=== PATIENT | female | born 1980 | race Caucasian/White ===

== ENCOUNTER 2021-08-31 01:17 | Day surgery (SDC) | payer OTHER, SELFPAY ==
[2021-08-30 12:41] VITALS: BMI 22.1
--- NOTE | 2021-08-30 12:52 | PC.NURSE ---
Report to the Outpatient Waiting Room, entrance under the green pavilion located off [facility], at time 1145 on date 08/31/21. OR Time: 1400. - You will be asked a series of questions to screen for COVID 19 for your protection. - A mask is required within the hospital. - No visitors are allowed at this time. Preoperative COVID Testing Requirements: No COVID Test needed if: (proof is required; if not received patient will have Rapid Test prior to entry) - Patient has received COVID Vaccine at least 14 days prior to procedure date or - Patient has positive COVID test result within last 90 days of surgery date. COVID Test needed if above criteria is not met If not COVID vaccinated a COVID test must be conducted within 72 hours of surgery and patient is asked to isolate self from time of testing until procedure. You will go to the [facility] for your COVID testing. The [facility] is located at the corner of [address] [facility]. RAPID COVID TEST 08/31 AT 1145 You will only be called if COVID results are positive and your surgeon may reschedule your elective surgery date. Patients may have clear liquids (water, carbonated beverages, clear teas, apple juice) until 3 hours prior to surgery with a maximum of 20 ounces. - No food from midnight until time of surgery Take the following medications with a SIP of water the morning of surgery: NONE Medications to discontinue per physician: N/A Date to take last dose: N/A Please no make-up, nail tajik, hairspray, perfume, deodorant, or body powder the day of surgery. No jewelry (including any body piercings) or valuables the day of surgery, leave them at home. Please take a shower or bath the night before, or the morning of, surgery with an antibacterial soap. Wear comfortable, loose fitting clothing. Children are encouraged to wear pajamas. - Jewelry must be removed prior to entering the operating room. Rings and piercings that are not removed may be cut off. - The hospital will not accept responsibility for valuables. - Please leave all valuables, including medications, at home the day of surgery. If you are going home after surgery, a licensed bobcat driver/labor must drive you home. - NO public transportation without another adult. - We recommend that an adult stay with you for 24 hours following discharge. - We also recommend that you do not drive, make important decision, drink alcoholic beverages, or take any drugs that were not prescribed by your health care provider for at least 24 hours after your discharge time. For Pediatric surgeries, we recommend two adults accompany the child home (only one inside the building at this time). Follow any additional instructions given to you from your surgeon. Telephone instructions given to DELIA GARCIA and asked if any additional questions and then verbalized understanding. Patient advised to call surgeon office or pre surgery nurse liaison [phone] if any additional questions.
--- NOTE | 2021-08-31 07:12 | P.HP_ITS ---
H&P: HPI History of Present Illness Date/Time: 1 41-year-old female who admitted for suction D&C secondary to susp ected molar . Patient had elevated quantitative HCG with abnormal tissue seen in the uterus. Risks and benefits were reviewed in great detail 07:12 Chief Complaint: Suspected molar Review of Systems Review of Systems: All systems reviewed & are unremarkable except as noted in HPI and below PMFSH Social History Social History Years smoked: 4 Smoking status: Former smoker Tobacco type: cigarettes Smoking end date: 09/03/18 Alcohol intake: never Substance use: never Substance use type: does not use Living arrangements: with family Spiritual care concerns: No Meds Home Medications and Allergies Home Medications Medication Instructions Recorded Confirmed Type No Home Medications 08/30/21 08/30/21 History Allergies Allergy/AdvReac Type Severity Reaction Status Date / Time No Known Allergies Allergy Unknown Unverified 08/30/21 12:41 Exam Const: General: no acute distress Eyes: General: appearance normal, both eyes and all related structures Neck: Neck: supple and no JVD Thyroid: thyroid normal Resp: Effort & Inspection: normal respiratory effort Auscultation: clear to auscultation bilaterally Cardio: Rate: regular rate Rhythm: regular rhythm GI: Inspection: non-distended GI Palp: Yes Soft to palpation, No Tenderness to palpation present (GI) and No Guarding due to palpation present (GI) Auscultation: normal bowel sounds : External Female Exam: normal external appearance Speculum Exam - Va kavin: normal appearance of the vagina Speculum Exam - Cervix: normal appearance of the cervix Bimanual exam- vagina & uterus: enlarged Bimanual Exam- Adnexa, other: normal adnexae Skin: General skin exam: no rashes or lesions noted Extrem: General: normal to inspection and no edema Psych: Mental Status: mental status grossly normal Affect: normal affect Assessment and Plan Additional Plan Impression: Abnormal in 1st trimester Plan: Suction dilatation curettage
--- NOTE | 2021-08-31 07:14 | WPDHPUPDATE1 ---
History and Physical Update Update Date/Time: 08/31/21 07:14 History and Physical has been reviewed, including an updated exam of the patient. There are NO changes in the patient's condition. Risks, benefits, and alternatives have been discussed and questions answered. Patient agrees to proceed with procedure.
[2021-08-31 12:57] VITALS: BP 116/76; PULSE 87; RESP 16; TEMP 36.8; O2SAT 100
[2021-08-31] MEDS: ACETAMINOPHEN 500 MG TABLET 1000 MG PO (12:59)
[2021-08-31 13:18] LABS: Hematocrit 38.2 % (37.0-47.0); Hemoglobin 12.9 g/dL (12.0-15.0)
--- NOTE | 2021-08-31 13:26 | WPDANESEPPF ---
Anes - Initial Pre Proc Eval Procedure: Operation Date: 08/31/21 14:00 Proposed Procedures p Dilation and Curettage - Alexx Aguirre MD Date/Time: 08/31/21 13:26 Surgeon: Alexx Aguirre MD Pre Op Diagnosis: Molar Patient Data Age: 41 Gender: F Height: 1.75 m Weight: 79.9 kg Last Vital Signs Temp 36.8 C 08/31/21 12:57 Pulse 87 08/31/21 12:57 Resp 16 08/31/21 12:57 BP 116/76 08/31/21 12:57 Pulse Ox 100 08/31/21 12:57 Allergies Allergy/AdvReac Type Severity Reaction Status Date / Time No Known Allergies Allergy Unknown Unverified 08/31/21 13:00 Home Medications Medication Instructions Recorded Confirmed Type hydrocodone-acetaminophen 1 tablet PO Q4H PRN #20 tablet 08/31/21 Rx Laboratory Tests 08/31/21 13:03 Hgb 12.9 g/dL g/dL (12.0-15.0) Hct 38.2 % % (37.0-47.0) Patient hx anesthesia problems: none Family hx anesthesia problems: none Results Review: All pre-operative results and documents have been reviewed as part of the pre-operative evaluation. FORMERLY [facility], [facility] Past Medical History Medical History (Updated 08/31/21 @ 13:24 by David Mora DO) Renal stones Social History Social History Years smoked: 4 Smoking status: Former smoker Tobacco type: cigarettes Smoking end date: 09/03/18 Alcohol intake: never Substance use: never Substance use type: does not use Spiritual care concerns: No Anes - Eval Final PreProcedure Day of Procedure 08/31/21 13:26 Patient weight: overweight Heart: regular rate and rhythm Lungs: clear to auscultation and normal air movement Airway: Mallampati scale class II Neurological: alert and oriented Last oral intake: >/= 8 hours ASA classification: II Emergent: no Anesthetic plan: proceed Anesthesia type and monitoring: general GIVS and standard monitoring Results Review: All pre-operative results and documents have been reviewed as part of the pre-operative evaluation. Informed Consent: The patient's anesthetic plan and its attendant risks and benefits were discussed with the patient/family/POA. Questions were solicited and answers provided to the satisfaction of the patient/family/POA.
[2021-08-31] MEDS: LACTATED RINGERS 1,000 ML 30 ML IV CONT (13:33)
[2021-08-31] MEDS: KETOROLAC 30 MG/ML VIAL (*BKC) IV PUSH (14:03)
--- NOTE | 2021-08-31 14:09 | W.PM.PROC2 ---
Procedure Note - Detailed Date of Procedure 08/31/21 Pre-op Diagnosis Molar Post-op Diagnosis same Procedure Performed Suction dilatation curettage Surgeon Alexx Aguirre MD Anesthesia MAC and local Indications This is a 41-year-old mal tip with an abnormal ultrasound findings that looked consistent with a molar in the 1st trimester Findings Products of conception Description of Procedure The patient was prepped draped in the normal sterile fashion placed in the dorsal lithotomy position. Under excellent IV sedation weighted is speculum placed posterior fornix vagina. Anterior lip of the cervix grasped with a single-tooth tenaculum and the uterus sounded to 10cm. Serial dilatation with fragmented dilators performed followed passes the 10. Suction curette. A moderate amount of a clumpy tissue was seen. When a good grating sound was heard the instruments removed. All sponge, needle, instrument counts were correct. There were no immediate complications Estimated Blood Loss 25 Drains No Packing No Pathology yes Complications No immediate complications Condition stable Disposition PACU
[2021-08-31 14:13] VITALS: BP 116/79; PULSE 83; RESP 16; O2SAT 100
[2021-08-31 14:40] VITALS: BP 111/77; PULSE 68; RESP 16; O2SAT 100
[2021-08-31] MEDS: oxyCODONE HCL (*CRX) 5 MG TAB IR PO (14:52)
[2021-08-31 14:58] VITALS: BP 114/71; PULSE 77; RESP 16
== END 2021-08-31 15:01 | disposition home or self-care (01) ==
PROVIDERS: Visit Provider Obstetrics & Gynecology
PROC: 0U5B8ZZ Destruction of Endometrium, Via Natural or Artificial Opening Endoscopic (ICD-10-PCS; CPT 58563; principal; 2021-08-31 14:00)
DX: O02.0 Blighted ovum and nonhydatidiform mole (principal); Z3A.00 Weeks of gestation of pregnancy not specified
CPT/HCPCS: 59820; 36415; 85014; 85018; 85461; 87426; 88305; A9270; C9803; J1885; J2250; J2704; J7120

== ENCOUNTER 2021-08-31 11:36 | Outpatient (CLI) | payer OTHER, SELFPAY ==
[2021-08-31 12:04] LABS: EDCOVIDSCREEN Negative (Negative)
== END 2021-08-31 11:37 | disposition home or self-care (01) ==
LOC: ANHSURGERY 11:41
PROVIDERS: Visit Provider Obstetrics & Gynecology
DX: Z01.812 Encounter for preprocedural laboratory examination (principal); Z20.822 Contact with and (suspected) exposure to COVID-19
CPT/HCPCS: 87426; C9803

== ENCOUNTER 2022-06-02 10:15 | Outpatient (RCR) | payer OTHER, SELFPAY ==
[2022-06-01 16:47] VITALS: BMI 30.7
== END 2022-08-23 11:28 | disposition home or self-care (01) ==
LOC: ANHDMC 10:15
PROVIDERS: Visit Provider Obstetrics & Gynecology
DX: O24.319 Unspecified pre-existing diabetes mellitus in pregnancy, unspecified trimester (principal); Z71.3 Dietary counseling and surveillance; Z71.89 Other specified counseling
CPT/HCPCS: 97802; G0108

== ENCOUNTER 2022-08-12 11:58 | Outpatient (CLI) | payer OTHER, SELFPAY ==
[2022-08-12 12:49] LABS: Hematocrit 36.4 % (37.0-47.0); Hemoglobin 12.2 g/dL (12.0-15.0); Mean Corpuscular HGB Conc 33.5 g/dl (32-36); Mean Corpuscular Hemoglobin 32.1 pg (26-34); Mean Corpuscular Volume 95.8 fl (80-100); Platelet Count Result 214 k/mm3 (150-375); Red Cell Distribution Width 13.8 % (11.5-14.5); White Blood Count 7.4 K/mm3 (4.5-10.0)
[2022-08-14 10:01] LABS: Rapid Plasma Reagin Non-Reactive (NonReactive)
== END 2022-08-12 11:59 | disposition home or self-care (01) ==
LOC: ANHLAB 11:59
PROVIDERS: Visit Provider Obstetrics & Gynecology
DX: Z01.818 Encounter for other preprocedural examination (principal)
CPT/HCPCS: 36415; 85027; 86592; 86850; 86900; 86901

== ENCOUNTER 2022-08-14 10:06 | Inpatient (IN) | payer OTHER, SELFPAY ==
[2022-08-14] VITALS (41 sets, daily range): BP systolic 84–127; BP diastolic 56–87; PULSE 49–111; RESP 11–19; TEMP 36.3–37; O2SAT 76–100; BMI 32.1
--- NOTE | 2022-08-14 08:03 | PM.IMHP ---
H&P: HPI History of Present Illness Date/Time: 08/14/22 08:03 Chief Complaint: Term with previous section Narrative: Is a 42-year-old female admitted for repeat section and tubal ligation. She had previous sections she has early visits confirming dates. She desires permanent irreversible sterilization L PMFSH Past Medical History Medical History Renal stones Family History Family History Other Patient denies significant medical history Social History Social History Years smoked: 4 Smoking status: Former smoker Tobacco type: cigarettes Smoking end date: 09/03/18 Alcohol intake: never Substance use: never Substance use type: does not use Spiritual care concerns: No Meds Home Medications and Allergies Home Medications Medication Instructions Recorded Confirmed Type prenat.vits,sreekanth,jew-kuvp-pvrgw 1 tablet PO HS 08/03/22 08/03/22 History Allergies Allergy/AdvReac Type Severity Reaction Status Date / Time No Known Allergies Allergy Unknown Unverified 08/31/21 13:00 Exam Const: General: cooperative, healthy appearing and comfortable Nutritional Appearance: average body habitus Orientation/consciousness: oriented to person, oriented to place and oriented to time HENMT: Head: normal to inspection Resp: Effort & Inspection: normal respiratory effort Cardio: Rate: regular rate Rhythm: regular rhythm Heart sounds: S1 normal heart sound present and S2 normal heart sound present GI: Inspection: normal to inspection (Gravid soft uterus) Assessment and Plan Assessment and plan (1) Term : Code(s): Z34.90 - Encounter for supervision of normal , unspecified, unspecified trimester Status: Acute (2) Previous section: Code(s): Z98.891 - History of uterine scar from previous surgery Status: Acute (3) Sterilization: Code(s): Z30.2 - Encounter for sterilization Status: Acute Plan Repeat low-transverse section. Bilateral tubal ligation.
--- NOTE | 2022-08-14 08:05 | WPDHPUPDATE1 ---
History and Physical Update Update Date/Time: 08/14/22 08:05 History and Physical has been reviewed, including an updated exam of the patient. There are NO changes in the patient's condition. Risks, benefits, and alternatives have been discussed and questions answered. Patient agrees to proceed with procedure.
--- NOTE | 2022-08-14 08:35 | P.PNAN_ITS ---
Anes - Initial Pre Proc Eval Procedure: Operation Date: 08/14/22 12:00 Proposed Procedures p Repeat Section with Left Ovarian Cystectomy - Alexx Barrow MD Date/Time: 08/14/22 08:35 Surgeon: Alexx Barrow MD Pre Op Diagnosis: prior , Vol Sterilization Patient Data Age: 42 Gender: F Height: Weight: Last Vital Signs Temp 36.8 C 08/31/21 12:57 Pulse 87 08/31/21 12:57 Resp 16 08/31/21 12:57 BP 116/76 08/31/21 12:57 Pulse Ox 100 08/31/21 12:57 Allergies Allergy/AdvReac Type Severity Reaction Status Date / Time No Known Allergies Allergy Unknown Verified 08/14/22 10:41 Home Medications Medication Instructions Recorded Confirmed Type prenat.vits,sreekanth,ehk-rdso-txjma 1 tablet PO HS 08/03/22 08/14/22 History hydrocodone 5 mg-acetaminophen 325 1 tablet PO Q4H PRN pain #30 tabs 08/14/22 Rx mg tablet Laboratory Tests 08/31/21 13:03 Hgb 12.9 g/dL g/dL (12.0-15.0) Hct 38.2 % % (37.0-47.0) Patient hx anesthesia problems: none Family hx anesthesia problems: none Results Review: All pre-operative results and documents have been reviewed as part of the pre- operative evaluation. [facility] Past Medical History Medical History Renal stones Family History Family History Other Patient denies significant medical history Social History Social History Years smoked: 4 Smoking status: Former smoker Tobacco type: cigarettes Smoking end date: 09/03/18 Alcohol intake: never Substance use: never Substance use type: does not use Lack of Transportation: No Lack of Food: Never True Current Housing: I Have Housing Concerned About Future Housing: No Difficulty Paying Gas/Electric Bills: No Difficulty Paying for Meds: No Currently Unemployed: No Education: Bachelor's Degree Difficulty w/ Childcare or Family Care: No Spiritual care concerns: No Anes - Eval Final PreProcedure Day of Procedure 08/14/22 08:35 Patient weight: overweight Heart: regular rate and rhythm Lungs: clear to auscultation and normal air movement Airway: Mallampati scale class II Neurological: alert and oriented Last oral intake: >/= 8 hours ASA classification: II Emergent: no Anesthetic plan: proceed Anesthesia type and monitoring: regional spinal and standard monitoring Results Review: All pre-operative results and documents have been reviewed as part of the pre- operative evaluation. Informed Consent: The patient's anesthetic plan and its attendant risks and benefits were discussed with the patient/family/POA. Questions were solicited and answers provided to the satisfaction of the patient/family/POA.
--- NOTE | 2022-08-14 10:32 | LDADM ---
This patient, Padmini Batista, was admitted to Labor/Delivery/Recovery 120 on 08/14/22 at 10:06. Plans for labor, pain management and were discussed with patient. Patient/family oriented to hospital policies and general routines including ID bracelet, bed and alarms, visiting hours, pain management, procedures, bathroom and other care routines, personal items, smoking policy, room service/diet and guest tray routines, infant security routines, and visiting hours. Patient/Family are encouraged to report perceived risks to care and to ask questions if they do not understand what they are told or what they should do. See OBIX for further documentation.
[2022-08-14] MEDS: LACTATED RINGERS 1,000 ML 999 ML IV CONT (10:45)
[2022-08-14] MEDS: LACTATED RINGERS 1,000 ML 125 ML IV CONT (10:57)
[2022-08-14] MEDS: ceFAZolin 2 GM/D5W 50 ML 2 GM/50 ML BAG IVPB (11:14)
[2022-08-14 11:32] LABS: HIV 1/2 Ab P24 Ag Result Negative (Negative)
[2022-08-14] MEDS: KETOROLAC 30 MG/ML VIAL (*BKC) IV PUSH (12:05)
--- NOTE | 2022-08-14 12:11 | W.PM.PROC2 ---
Procedure Note - Detailed Date of Procedure 08/14/22 Pre-op Diagnosis prior , Vol Sterilization Post-op Diagnosis Same Procedure Performed Repeat low-transverse section and bilateral tubal ligation via modified Bryce method Surgeon Alexx Barrow MD Anesthesia Spinal Indications this is 42-year-old multiparous patient with previous who desires permanent sterilization expected large baby Findings male 10 lb 12 oz with Apgars of 9 and 9 at 1 and 5 minutes respectively Description of Procedure patient was prepped draped in normal sterile fashion placed in supine position. Under excellent spinal anesthetic the abdomen was entered in Pfannenstiel fashion progressive layers of fascia. Fascia incised midline carried upward outward fashion bilaterally. Underlying muscles sharply dissected parietal peritoneum 0 by Jenn clamps carried this was carried superiorly and inferiorly down the bladder. A bladder flap was placed was made and the bladder blade returned. A low-transverse incision made head delivered in the LAI position. Anterior posterior shoulder delivered spontaneously. Cord clamped x2 and cut and passed off the table with a cry. Placenta delivered intact manually and uterus delivered on the abdomen wrapped in a moist towel. After assuring no membranes or debris made in the uterus, the uterus was closed with continuous running 0 Vicryl from lateral edge lateral edge. This for running locking 0 Vicryl from lateral edge to lateral edge. Hemostasis was assured. The right fallopian tube was then grasped a good knuckle of tube formed with the clamp in and the and this was free tied with 0 chromic. The distal and proximal legs were then free tied in the portion between cut passed off as portion of right fallopian tube. In like fashion the left fallopian tube was grasped was midportion and a good knuckle of tube free tied. The peritoneum between pierced and a good not free tie of 0 chromic placed on the distal and proximal legs. The portion between removed and passed off as portion of left fallopian tube. Hemostasis was assured the ovaries appeared within normal limits and the uterus turned the abdomen. The fascia was then closed with continuous running 0 Vicryl from lateral edge to midline bilaterally after assuring November laps and sponges were normal. The skin closed with 4 Monocryl and glue. Blood loss was 1035. All sponge, needle, instrument counts were correct. There were no immediate complications Estimated Blood Loss 1,035 Drains No Packing No Pathology Yes Complications No immediate complications Condition Stable Disposition PACU
--- NOTE | 2022-08-14 14:28 | OBPPTRN ---
Patient transferred to post room #291 via stretcher. Support person present. Oriented to unit, room, information board, rooming in, admission packet and security measures. Patient verbalizes understanding.
--- NOTE | 2022-08-14 16:16 | PC.NURSE ---
[id number] Introductions were made, then consulted with patient to assess needs related to . Resource provided for inpatient consult and mother received assistance. Mother works well with her with encouragement and education. Mother states she pump and fed her other children because they wouldn't latch . Encouraged understanding of the benefits of skin to skin (demonstrating unwrapping infant and placing vertically on her chest), responsive to feeding cues, frequency of feeding on demand about every 8-12 times in 24 hours (every 2-3 hours), milk production and, duration of feeding, signs of adequate intake/output, how to record on the feeding sheet and practicing these for the next 24-48 will make a difference in success. Mother demonstrated education of hand expression and infant was spoon fed 5mls of colostrum. Reviewed positioning and ear, shoulder, hip alignment, supporting the breast, asymmetrical latch (off-center), and leading with the chin with a big, open, wide gape using the Latch 1-2-3 handout and mom/baby guide for a resource. Infant attempts rarely with a less than 90 degrees making sucking noises on the nipple. Described latching with a big mouthful after waiting for the big open mouth like eating a triple cheeseburger or taking a big bite of an apple. Reviewed good handwashing when or touching the breast/nipples to prevent infection. Siblings came into the room and mother quickly covered up. was beginning to demonstrate feeding cues, mother was encouraged to remain skin to skin and prepare to practice . Mother made the decision to remove infant from her chest and requested be swaddled so the siblings can meet the infant. Mother declined pumping at this time and reminded to call Primary RN when she is ready to initiate pumping. Resources used to facilitate learning were used with the visual handouts, tool, mom and baby guide. Mother voiced understanding of the information, responsive feedings, stimulating with skin to skin, hand expressed colostrum, touch, talking to infant to encourage if it has been 2 -3 hours since the start of the last but most importantly to watch her for feeding cues and encourage with skin to skin, to call if infant does not latch or there is discomfort with . Mother declined to work with at this time. Reported to the primary RN.
[2022-08-14] MEDS: HYDROcodone/acetaminophen (*CRX) 5-325 MG TABLET 1 TAB PO ×2 (17:10→22:49)
[2022-08-14] MEDS: DOCUSATE SODIUM 100 MG CAPSULE PO (17:10)
[2022-08-14] MEDS: DEXTROSE 5%/0.45% SOD CHL 1,000 ML 125 ML IV CONT (17:36)
[2022-08-14] MEDS: IBUPROFEN 600 MG TABLET PO (19:18)
--- NOTE | 2022-08-14 21:39 | PC.NURSE ---
Dr. Shante Barrow responded to page. Nurse Evangelina Rivero reported bilateral leg +2 pitting edema and itching. New orders for 10mg Lassix and 50mg Benedryl.
[2022-08-14] MEDS: FUROSEMIDE INJ 40 MG/4 ML VIAL 10 MG IV PUSH (23:06)
[2022-08-15] MEDS: diphenhydrAMINE HCl INJ 50 MG/ML VIAL 25 MG IV PUSH (00:10)
[2022-08-15] MEDS: IBUPROFEN 600 MG TABLET PO ×4 (01:55→23:52)
[2022-08-15] MEDS: HYDROcodone/acetaminophen (*CRX) 5-325 MG TABLET 1 TAB PO ×2 (04:28→08:14)
[2022-08-15] MEDS: SIMETHICONE 80 MG TAB.CHEW PO ×5 (04:28→23:53)
[2022-08-15 04:30] VITALS: BP 108/67; PULSE 75; RESP 16; TEMP 37.2; O2SAT 99
[2022-08-15 04:52] LABS: Basophils Percent Auto 0.2 % (0.2-1.2); Eosinophils Percent Auto 0.4 % (0-4.4); Hematocrit 30.2 % (37.0-47.0); Hemoglobin 10.2 g/dL (12.0-15.0); Immature Granulocyte Absolute 0.08 K/mm3 (0.00-0.031); Lymphocytes Absolute Auto 1.24 K/mm3 (0.9-3.2); Mean Corpuscular HGB Conc 33.8 g/dl (32-36); Mean Corpuscular Hemoglobin 32.5 pg (26-34); Mean Corpuscular Volume 96.2 fl (80-100); Mean Platelet Volume 11.3 fl (7.4-10.4); Monocytes Absolute Auto 0.4 K/mm3 (0.1-0.6); Neutrophils Absolute Auto 6.5 K/mm3 (1.3-6.7); Neutrophils Percent Auto 78.4 % (45.5-73.1); Platelet Count Result 197 k/mm3 (150-375); Red Blood Count 3.14 M/mm3 (4.2-5.4); Red Cell Distribution Width 13.7 % (11.5-14.5); White Blood Count 8.3 K/mm3 (4.5-10.0)
--- NOTE | 2022-08-15 06:41 | PM.OBPNVD ---
OB - PN: Subj Subjective Date/time seen: 08/15/22 06:41 Interval history: baby on d10 Patient comments: no complaints and pain well controlled baby status: doing well and nursing well OB - PN: Obj Data Labs 08/15/22 04:21 Labs: Laboratory Results - last 24 hr 08/14/22 08/15/22 10:19 04:21 WBC 8.3 RBC 3.14 L Hgb 10.2 L Hct 30.2 L MCV 96.2 MCH 32.5 MCHC 33.8 RDW 13.7 Plt Count 197 MPV 11.3 H Immature Gran % (Auto) 1.0 H Neut % (Auto) 78.4 H Lymph % (Auto) 15.0 L [place] % (Auto) 5.0 Eos % (Auto) 0.4 Baso % (Auto) 0.2 Lymph # (Auto) 1.24 [place] # (Auto) 0.4 Eos # (Auto) 0.0 Baso # (Auto) 0.0 Abs Immat Gran (auto) 0.08 H Absolute Neuts (auto) 6.5 Absolute Nucleated RBC 0.0 Nucleated RBC % 0.0 HIV 1&2 Ab/P24 Ag 4thGn Negative OB - PN A/P Plan day: 1 Plan: routine care Time Spent With Patient Time: Total time spent is greater than 50% in coordination of care (as documented) at patient's floor/unit and/or counseling patient: Time with patient: less than 15 minutes Exam Const: General: cooperative, healthy appearing and comfortable Nutritional Appearance: average body habitus Orientation/consciousness: oriented to person, oriented to place and oriented to time Resp: Effort & Inspection: normal respiratory effort Cardio: Rate: regular rate Rhythm: regular rhythm Heart sounds: S1 normal heart sound present and S2 normal heart sound present GI: Inspection: normal to inspection and incision (cdi)
[2022-08-15 07:35] VITALS: BP 109/64; PULSE 85; RESP 16; TEMP 37.4; O2SAT 99
[2022-08-15] MEDS: MULTIVIT/MIN/PREN/FOL AC/IRON TABLET 1 TAB PO (08:14)
[2022-08-15] MEDS: DOCUSATE SODIUM 100 MG CAPSULE PO ×2 (08:14→15:55)
--- NOTE | 2022-08-15 09:30 | WPDANLDPN2 ---
Anes-Prog Note L&D Date/Time: 08/15/22 09:30 Comfortable throughout: section Neuraxial method: spinal Epidural/Spinal procedure site: clean & non-tender Neuro status: Neuro function grossly intact. Cardiovascular status: normal Respiratory status: normal Airway patency: baseline Mental status: baseline Post-Op hydration status: normal Vital Signs: Last Vital Signs Temp 99.3 F 08/15/22 07:35 Pulse 85 08/15/22 07:35 Resp 16 08/15/22 07:35 BP 109/64 08/15/22 07:35 Pulse Ox 99 08/15/22 07:35 O2 Del Method Room Air 08/14/22 14:45 Pain score (VAS): 0 I/O: Intake & Output 08/14/22 08/15/22 08/15/22 23:59 07:59 15:59 Intake Total 500 2600 Output Total 450 3150 Balance 50 -550 Post-procedural complaints: pruritis moderate, treatment effective Patient feedback: Patient satisfied with anesthetic care.
--- NOTE | 2022-08-15 09:31 | WPDANLDNPN2 ---
Anes-Prog Note L&D-Neuraxial Date/Time: 08/15/22 09:31 Neuraxial medications: intrathecal PF morphine Opiod-related complaints: pruritis moderate, treatment effective Patient feedback: Patient satisfied with post-operative pain management.
[2022-08-15] MEDS: HYDROcodone/acetaminophen (*CRX) 10-325 MG TABLET 1 TAB PO ×4 (12:53→23:53)
--- NOTE | 2022-08-15 14:12 | PC.NURSE ---
[id number] Consulted with patient to assess needs related to . Mother is leaning slightly forward and has her infant laying on a pillow latched to her breast and confirms there's pinching with . Mother works well with her with encouragement and RN detaches and reviews the visual misshaped nipple, offers assistance with a deeper latch and changing of positioning. Mother receives information and assistance. Reviewed working with infant, breast, nipples and how to protect the nipples with an optimal deep latch, good positioning, and good hand washing. Reviewed positioning and alignment, supporting breast, off-centered (asymmetrical latch) and leading with the chin with big, open, wide gape bringing her to the breast to receive a big mouthful, then supporting optimal latch. Infant latched optimally to the right breast in cross cradle position. Education given to mother of how to visualize suck/swallow ratios and listening for drinking at the breast. Infant was able to maintain latch without discomfort to mother. Nipple care reviewed with optimal latch and good positioning, comfort, healing with warm, wet washcloth to rinse breast, then leave open to air-dry, colostrum may be left on nipples to dry but have clean hands when touching the nipple/breast as needed. Discussed the medical history, maternal age, delivery, medication and blood loss as it relates to milk production. Resources used to facilitate learning were used from the visual handout, mom and baby guide. Mother voiced understanding of the education shared, calling for assistance if the does not latch or if there is discomfort with . Reported to the primary RN.
[2022-08-15 20:00] VITALS: BP 119/73; PULSE 88; RESP 18; TEMP 36.9; O2SAT 99
[2022-08-16] MEDS: SIMETHICONE 80 MG TAB.CHEW PO (04:11)
[2022-08-16] MEDS: HYDROcodone/acetaminophen (*CRX) 10-325 MG TABLET 1 TAB PO ×3 (04:11→12:35)
--- NOTE | 2022-08-16 06:08 | PM.DS ---
DS: Admitting Diagnosis Discharge Date 07/17/22 Admitting Diagnosis Term who desires permanent sterilization with previous section DS: Discharge Diagnosis Discharge Diagnosis (1) Sterilization: Code(s): Z30.2 - Encounter for sterilization Status: Acute (2) Previous section: Code(s): Z98.891 - History of uterine scar from previous surgery Status: Acute (3) Term : Code(s): Z34.90 - Encounter for supervision of normal , unspecified, unspecified trimester Status: Acute DS: Summary Hospital Course Reason for hospitalization: Patient was admitted for repeat section and tubal ligation at term Hospital Course: Patient was admitted at term for repeat section and bilateral tubal ligation for expected very large baby and previous section. She also desired permanent sterilization. She underwent an unremarkable section with bilateral tubal ligation. She remained afebrile throughout. She was up, voiding without difficulty, ambulating, breast-feeding, generally without complaints. Time Spent with Patient Time attestation: Total time spent providing and/or coordinating discharge services: Exam Const: General: cooperative, healthy appearing, comfortable, well groomed and average body habitus Orientation/consciousness: oriented to person, oriented to place and oriented to time HENMT: Head: normal to inspection Resp: Effort & Inspection: normal respiratory effort Cardio: Rate: regular rate Rhythm: regular rhythm Heart sounds: S1 normal heart sound present and S2 normal heart sound present GI: Inspection: normal to inspection and incision (Wound clean dry and intact) DS: Data Data Completed and Pending Completed studies during hospitalization: Pending at discharge 08/14/22 11:49 Surgical [PTH] Routine Surgical [PTH] Routine Discharge Plan Discharge Attending physician on discharge: Alexx Pittman Discharging Clinician: Alexx Pittman Anticipated Discharge Date/Time: 08/16/22 14:00 Patient Disposition: Home, Self-Care Activity: may shower, no straining, may drive after 2 weeks and pelvic rest Diet: regular Wound Care Instructions: follow printed instructions Discharge Instructions: Education: Mom and Baby Guide Given to: Mother Follow-Up: Call your delivering provider's office for an appointment to be seen in: 4 Weeks Mom and baby should come to the [facility] for the follow-up appointment. Appointment Date/Time: August 17, 2022 at 11:00 am What to expect at your follow-up visit: Call [phone] if you are unable to keep your appointment time. BREAST CARE: * Wear a snug supportive bra. * For engorgement discomfort: Breast Feeding: * Apply warm moist washcloths * Express milk as needed to relieve engorgement * Wear loose clothing Bottle Feeding: * May apply ice packs * For sore nipples: * Identify correct latch-on * Apply warm moist washcloths before and after nursing * Air dry nipples after nursing * May apply Lansinoh cream to nipples ABDOMINAL INCISION: * Allow incision to air dry * Do NOT use lotions for powders on your incision * When showering, allow soap and water to run over the incision, but do not wash incision PERINEAL CARE: * Until bleeding stops, use your jv bottle after urinating * Change your pad frequently throughout the day * You may take sitz baths several times a day (fill your bathtub with warm water and soak for 20 minutes.) Do NOT bathe in the water * No tub baths until seen by your physician - You may shower ACTIVITY: * Rest as much as possible. * Do not exercise or lift anything heavier than your baby (such as laundry or other children.) * Avoid stairs or driving as much as possible. * Do not put anything into the
--- NOTE | 2022-08-16 06:11 | PM.OBPNVD ---
OB - PN: Subj Subjective Date/time seen: 08/16/22 06:11 Interval history: baby on d10 Patient comments: no complaints and pain well controlled baby status: doing well and nursing well OB - PN: Obj Data Labs 08/15/22 04:21 OB - PN A/P Plan day: 2 Plan: routine care Time Spent With Patient Time: Total time spent is greater than 50% in coordination of care (as documented) at patient's floor/unit and/or counseling patient: Time with patient: less than 15 minutes Exam Const: General: cooperative, healthy appearing, comfortable and well groomed Nutritional Appearance: average body habitus Orientation/consciousness: oriented to person, oriented to place and oriented to time Resp: Effort & Inspection: normal respiratory effort GI: Inspection: normal to inspection (Fundus firm below the umbilicus) and incision (Wound is clean dry and intact)
[2022-08-16 07:50] VITALS: BP 122/87; PULSE 79; RESP 18; TEMP 36.9; O2SAT 98
[2022-08-16] MEDS: DOCUSATE SODIUM 100 MG CAPSULE PO (08:07)
[2022-08-16] MEDS: IBUPROFEN 600 MG TABLET PO (08:07)
[2022-08-16] MEDS: MULTIVIT/MIN/PREN/FOL AC/IRON TABLET 1 TAB PO (08:07)
--- NOTE | 2022-08-16 13:11 | PC.NURSE ---
Patient to view the discharge video Mother & Baby Care, The First Two Weeks online. Patient was given the opportunity and encouraged to ask questions. Patient verbalized understanding of information shared and has been given the mother/baby guide for home reference.
--- NOTE | 2022-08-16 16:19 | PC.NURSE ---
[id number] Mother led the conversation with her experience and plan to feed her so far and her ability to continue with the plan of attempting to , pumping and supplementing with formula to feed infant. Reminded parents to use good handwashing technique to prevent infection. Mother is feeding appropriately for growth of infant and understands stimulating to eat if needed. Infant has had appropriate feedings in the last 24 hours meets the outcomes for weight, output and jaundice at this time. Mother states she is confident to continue feeding her at home or when to call for assistance and denies any additional assistance or education at this time. Reinforced understanding of milk production, transition of milk, signs of adequate intake, prevention/relief of engorgement, responsive after visualizing feeding cues, the different methods of stimulating infant to breastfeed 2-3 hours after the start of the last feeding, community resources, medication information reviewed per [facility] and when to call a provider using the resource of the mom and baby guide/[facility] website. Parents voiced understanding of the education shared. Reported to the primary RN.
[2022-08-17 11:23] VITALS: BP 126/78; PULSE 76; RESP 20; TEMP 36.7; O2SAT 98
== END 2022-08-16 14:58 | disposition home or self-care (01) | DRG 785 ==
LOC: ANHLDR 10:36 → ANHOB2 14:55
PROVIDERS: Admitting Provider Obstetrics & Gynecology; Visit Provider Obstetrics & Gynecology
PROC: 10D00Z1 Extraction of Products of Conception, Low, Open Approach (ICD-10-PCS; CPT 59514; principal; 2022-08-14 12:00)
DX: O34.211 Maternal care for low transverse scar from previous cesarean delivery (principal); Z37.0 Single live birth; Z3A.39 39 weeks gestation of pregnancy; Z30.2 Encounter for sterilization; O99.72 Diseases of the skin and subcutaneous tissue complicating childbirth; L29.9 Pruritus, unspecified; O36.63X0 Maternal care for excessive fetal growth, third trimester, not applicable or unspecified
CPT/HCPCS: 36415; 85025; 85027; 86592; 86703; 86850; 86900; 86901; 88302; A9270; G0432; J0131; J0690; J1100; J1200; J1885; J1940; J2274; J2405; J2590; J7120

== ENCOUNTER 2022-08-29 12:06 | Inpatient (IN) | payer OTHER, SELFPAY ==
[2022-08-29] VITALS (117 sets, daily range): BP systolic 100–136; BP diastolic 57–80; PULSE 90–126; RESP 16–19; TEMP 37.1–38.2; O2SAT 91–100
--- NOTE | ~2022-08-29 | US_ITS ---
Pelvic ultrasound. Clinical History: Evaluate for retained placenta Technique: Realtime transabdominal scanning of the pelvis was performed. Color flow imaging was perfo rmed. COMPARISON: 08/29/2022 Findings: The uterus is anteverted. The endometrial stripe is markedly thickened and heterogeneous, measuring up to 7.6 cm in thickness. No vascular flow evident on color imaging. Neither ovary seen. No adnexal mass seen. There is no evidence of free fluid in the cul de sac. Impression: Marked thickening and heterogeneity of the endometrial stripe, unchanged from yesterday's exam. Findi ngs could reflect blood products/hematoma within the endometrial cavity. Absence of color flow mitiga cheri against retained products of conception or gestational trophoblastic disease. Reviewed, dictated and finalized at location . LATHE OPERATOR Impression: Marked thickening and heterogeneity of the endometrial stripe, unchanged from y esterday's exam. Findings could reflect blood products/hematoma within the endo metrial cavity. Absence of color flow mitigates against retained products of co nception or gestational trophoblastic disease.
--- NOTE | ~2022-08-29 | US_ITS ---
EXAMINATION: US pelvic complete DATE: 08/29/2022 14:09 INDICATION: Vaginal bleeding status post section TECHNIQUE: Multiple transabdominal and endovaginal sonographic images of the pelvis were obtained. COMPARISON: None. FINDINGS: The uterus measures 15.9 x 10.1 x 12.6 cm. There is heterogeneous material in the endometri al cavity measuring up to 6.2 cm. The ovaries are not visualized however no adnexal abnormality is se en. There is no free fluid in the pelvis. IMPRESSION: 1. Expansion of the endometrial cavity by heterogeneous appearing material, possible retained product s of conception. Reviewed, dictated and finalized at location L. KFAST BAR ATTENDANT IMPRESSION: 1. Expansion of the endometrial cavity by heterogeneous appearing material, pos sible retained products of conception.
--- NOTE | 2022-08-29 12:13 | ECG_ITS ---
Measurements Intervals [place] Rate: 120 P: 68 AL: 145 QRS: 83 QRSD: 89 T: 34 QT: 342 QTc: 485 Interpretive Statements SINUS TACHYCARDIA POSSIBLE RIGHT VENTRICULAR CONDUCTION DELAY [RSR (QR) IN V1/V2] NONSPECIFIC ST & T-WAVE ABNORMALITY ABNORMAL ECG NO PREVIOUS ECG AVAILABLE FOR COMPARISON Electronically Signed On 08-29-2022 17:58:53 TAXI CAB DRIVER by Cr Bailey M.D.
[2022-08-29 12:28] LABS: Basophils Percent Auto 0.3 % (0.2-1.2); Eosinophils Absolute Auto 0.1 K/mm3 (0-0.3); Eosinophils Percent Auto 1.2 % (0-4.4); Immature Granulocyte Absolute 0.03 K/mm3 (0.00-0.031); Immature Granulocyte Percent A 0.5 % (0-0.5); Lymphocytes Absolute Auto 1.04 K/mm3 (0.9-3.2); Lymphocytes Percent Auto 17.8 % (18.3-44.2); Mean Corpuscular HGB Conc 32.5 g/dl (32-36); Mean Corpuscular Hemoglobin 32.5 pg (26-34); Mean Platelet Volume 8.7 fl (7.4-10.4); Monocytes Absolute Auto 0.3 K/mm3 (0.1-0.6); Monocytes Percent Auto 5.5 % (2.6-8.5); Neutrophils Absolute Auto 4.4 K/mm3 (1.3-6.7); Neutrophils Percent Auto 74.7 % (45.5-73.1); Platelet Count Result 234 k/mm3 (150-375); Red Cell Distribution Width 13.6 % (11.5-14.5); White Blood Count 5.8 K/mm3 (4.5-10.0)
[2022-08-29 12:36] LABS: Hemoglobin 6.5 g/dL (12.0-15.0)
[2022-08-29 12:38] LABS: Alanine Aminotransferase 24 U/L (6-35); Albumin Level 3.3 g/dL (3.5-5.1); Alkaline Phosphatase 51 U/L (38-126); Anion Gap 5 mmol/L (8-16); Aspartate Amino Transferase 22 U/L (14-36); Bilirubin,Total 0.3 mg/dL (0.2-1.3); Blood Urea Nitrogen 12 mg/dL (7-17); Calcium 7.7 mg/dL (8.4-10.2); Carbon Dioxide 25 mmol/L (22-30); Chloride 108 mmol/L (98-107); Estimated CRCL calculation 107 ml/min; Estimated Glomerular Filt Rate > 60; Glucose 130 mg/dL (65-110); Potassium 3.4 mmol/L (3.4-5.0); Sodium 138 mmol/L (137-145)
[2022-08-29 12:47] LABS: NT Pro B Type Natriuretic Pept 205 pg/mL (5-100)
--- NOTE | 2022-08-29 13:55 | PC.NURSE ---
Patient off unit to US.
[2022-08-29] MEDS: SODIUM CHLORIDE 0.9% IV 1,000 ML 150 ML IV CONT (14:38)
--- NOTE | 2022-08-29 14:46 | ED.GENADULT ---
HPI - General Adult General Chief complaint: Vaginal Bleeding Stated complaint: vaginal bleeding, syncope Time Seen by Provider: 08/29/22 12:57 History of Present Illness HPI narrative: 42-year-old 3 para 3 status post August 14, 2022 here with complaints of vaginal bleeding since yesterday. Patient states that postoperatively she had barely any bleeding yesterday morning while she was breast-feeding noticed some blood and soon after she states that she had multiple episodes of heavy bleeding with few clots. States that she has used 12 adult diapers since yesterday she denies being lightheaded or dizzy. No significant abdominal pain. No history of fever or chills. Related Data Home Medications Medication Instructions Recorded Confirmed prenat.vits,sreekanth,[id number] 1 tablet PO HS 08/03/22 08/14/22 Allergies Allergy/AdvReac Type Severity Reaction Status Date / Time No Known Allergies Allergy Unknown Verified 08/14/22 10:41 Review of Systems Review of Systems: All systems reviewed & are unremarkable except as noted in HPI and below Constitutional: Constitutional: Reports no additional constitutional complaints Eyes: Eyes: Reports no additional eye complaints ENT: Reports system reviewed and no additional complaints, except as documented Cardiovascular: Cardiovascular: Reports no additional cardiovascular complaints Respiratory: Respiratory: Reports no additional respiratory complaints Gastrointestinal: Gastrointestinal: Reports no additional gastrointestinal complaints Genitourinary: Genitourinary: Reports as per HPI Musculoskeletal: Musculoskeletal: Reports no additional musculoskeletal complaints Integumentary/Breasts: Skin/Breast: Reports system reviewed and no additional complaints, except as docu Neurologic: Reports system reviewed and no additional complaints, except as documented Psychiatric: Psychiatric: Reports no additional psychiatric complaints Endocrine: Endocrine: Reports no additional endocrine complaints Hematologic/Lymphatic: Hematologic/Lymphatic: Reports no additional hematologic/lymphatic complaints Allergic/Immunologic: Allergic/Immunologic: Reports no additional allergic/immunologic complaints [facility] Past Medical History Medical History Renal stones Family History Family History Other Patient denies significant medical history Social History Social History Years smoked: 4 Smoking status: Former smoker Tobacco type: cigarettes Smoking end date: 09/03/18 Alcohol intake: never Substance use: never Substance use type: does not use Lack of Transportation: No Lack of Food: Never True Current Housing: I Have Housing Concerned About Future Housing: No Difficulty Paying Gas/Electric Bills: No Difficulty Paying for Meds: No Currently Unemployed: No Education: Bachelor's Degree Difficulty w/ Childcare or Family Care: No Spiritual care concerns: No Exam Narrative: GENERAL: Well-appearing, well-nourished, and in no acute distress. HEAD: Normocephalic, atraumatic. EYES: PERRLA and EOMI.. NECK: Supple. CHEST: Clear to auscultation. No respiratory distress. HEART: Regular rate and rhythm. No murmur heard. Normal peripheral pulses. ABDOMEN: Soft, mild lower abdominal tenderness, nondistended, normal active bowel sounds. EXTREMITIES: Normal range of motion. No edema. SKIN: Warm, dry, no rash. NEURO: No focal deficits. Alert and oriented x3. PSYCH: Normal mood and affect. Course Course Emergency Course: 42-year-old s/p 2 weeks ago now having vaginal bleeding her hemoglobin is 6.5 we will transfuse her with 2 units of PRBC also obtain ultrasound , consult DOORPERSON OR LUGGAGE PORTER. Vital Signs Vital signs: Vital Signs Temperature 37.1 C 08/29/22 12:08
[2022-08-29] MEDS: METHYLERGONOVINE MALEATE 0.2 MG TABLET PO ×3 (15:36→23:58)
--- NOTE | 2022-08-29 15:50 | OBADM ---
This patient, Padmini Batista, admitted to the OB room OB Post 111 for observation. Pt states she started to have heavier bleeding yesterday morning after breast feeding. passed some clots. visited ER today and admitted for blood transfusion and possible D&C. Patient/family oriented to hospital policies and general routines including ID bracelet, bed and alarms, visiting hours, pain management, procedures, bathroom and other care routines, personal items, smoking policy, room service/diet, and visiting hours. Patient/Family are encouraged to report perceived risks to care and to ask questions if they do not understand what they are told or what they should do.
[2022-08-29 15:55] LABS: Influenza A QL RT-PCR Negative (Negative); Influenza B QL RT-PCR Negative (Negative); SARS-CoV-2 RNA PCR Negative
--- NOTE | 2022-08-29 16:08 | PM.IMHP ---
H&P: HPI History of Present Illness Date/Time: 08/29/22 16:08 Chief Complaint: Vaginal bleeding Narrative: This is a a 42-year-old 3 para 3 who delivered by with a tubal ligation 15 days ago. She had done fine until yesterday when she started bleeding heavily. She has been and noted some heavy bleeding and then went through 12 heavy pads. Her hemoglobin is 6 down from 10 and ultrasound shows clots in the uterus. She is admitted for transfusion and observation. [facility] Past Medical History Medical History Renal stones Family History Family History Other Patient denies significant medical history Social History Social History Years smoked: 4 Smoking status: Former smoker Tobacco type: cigarettes Smoking end date: 09/03/18 Alcohol intake: never Substance use: never Substance use type: does not use Lack of Transportation: No Lack of Food: Never True Current Housing: I Have Housing Concerned About Future Housing: No Difficulty Paying Gas/Electric Bills: No Difficulty Paying for Meds: No Currently Unemployed: No Education: Bachelor's Degree Difficulty w/ Childcare or Family Care: No Spiritual care concerns: No Meds Home Medications and Allergies Home Medications Medication Instructions Recorded Confirmed Type prenat.vits,sreekanth,[id number] 1 tablet PO HS 08/03/22 08/14/22 History hydrocodone 5 mg-acetaminophen 325 1 tablet PO Q4H PRN pain #30 tabs 08/14/22 Rx mg tablet ibuprofen 600 mg tablet 600 mg PO Q6H PRN Cramping #60 tabs 08/16/22 Rx Allergies Allergy/AdvReac Type Severity Reaction Status Date / Time No Known Allergies Allergy Unknown Verified 08/14/22 10:41 Vital Signs Vital Signs - 24 hr 08/29/22 12:08 08/29/22 13:23 08/29/22 13:28 Temperature 98.7 F Pulse Rate 122 H 108 H Respiratory Rate 16 18 Blood Pressure 136/67 118/77 Pulse Oximetry 99 100 98 Oxygen Delivery Room Air 08/29/22 13:30 08/29/22 13:31 08/29/22 15:01 Temperature Pulse Rate Respiratory Rate Blood Pressure 126/78 Pulse Oximetry 97 98 100 Oxygen Delivery 08/29/22 15:15 08/29/22 15:58 08/29/22 16:00 Temperature Pulse Rate 98 97 96 Respiratory Rate Blood Pressure 135/77 119/76 Pulse Oximetry 99 Oxygen Delivery Exam Const: General: cooperative, healthy appearing, comfortable and well groomed Nutritional Appearance: average body habitus Orientation/consciousness: oriented to person, oriented to place and oriented to time Resp: Effort & Inspection: normal respiratory effort Cardio: Rate: regular rate Rhythm: regular rhythm Heart sounds: S1 normal heart sound present and S2 normal heart sound present GI: Inspection: normal to inspection and incision (Wound is clean dry and intact) H&P: Results Labs Labs: Short CBC 08/29/22 Range/Units 12:22 WBC 5.8 (4.5-10.0) K/mm3 Hgb 6.5 L* D (12.0-15.0) g/dL Hct 20.0 L* (37.0-47.0) % Plt Count 234 (150-375) k/mm3 [facility] 08/29/22 12:22 Sodium 138 Potassium 3.4 Chloride 108 H Carbon Dioxide 25 BUN 12 Creatinine 0.70 Glucose 130 H Calcium 7.7 L Liver Function 08/29/22 Range/Units 12:22 Total Bilirubin 0.3 (0.2-1.3) mg/dL AST 22 (14-36) U/L ALT 24 (6-35) U/L Alkaline Phosphatase 51 (38-126) U/L Albumin 3.3 L (3.5-5.1) g/dL Assessment and Plan Assessment and plan (1) Anemia: Qualifiers: Anemia type: other cause Code(s): D64.9 - Anemia, unspecified Status: Acute Plan Patient is admitted for transfusion and observation. She is started on Methergine. Is a clots remain and she continues to bleed she will undergo suction dilatation and curettage
[2022-08-29] MEDS: TUBING, BLOOD PLUM PUMP TUBING 1 EACH XX (20:18)
[2022-08-29] MEDS: HYDROcodone/acetaminophen (*CRX) 5-325 MG TABLET 1 TAB PO (23:58)
[2022-08-30 04:52] VITALS: PULSE 92; O2SAT 94
[2022-08-30 04:54] VITALS: BP 120/70; BP 96/68; PULSE 88
[2022-08-30 05:05] VITALS: BP 120/70; PULSE 86; RESP 16; TEMP 36.9; O2SAT 95
[2022-08-30 05:16] LABS: Basophils Percent Auto 0.4 % (0.2-1.2); Eosinophils Absolute Auto 0.1 K/mm3 (0-0.3); Eosinophils Percent Auto 2.7 % (0-4.4); Immature Granulocyte Absolute 0.03 K/mm3 (0.00-0.031); Immature Granulocyte Percent A 0.7 % (0-0.5); Lymphocytes Absolute Auto 1.05 K/mm3 (0.9-3.2); Lymphocytes Percent Auto 23.4 % (18.3-44.2); Mean Corpuscular HGB Conc 33.3 g/dl (32-36); Mean Corpuscular Hemoglobin 31.6 pg (26-34); Mean Corpuscular Volume 94.9 fl (80-100); Mean Platelet Volume 9.4 fl (7.4-10.4); Monocytes Absolute Auto 0.4 K/mm3 (0.1-0.6); Monocytes Percent Auto 8.5 % (2.6-8.5); Neutrophils Absolute Auto 2.9 K/mm3 (1.3-6.7); Neutrophils Percent Auto 64.3 % (45.5-73.1); Platelet Count Result 219 k/mm3 (150-375); Red Blood Count 2.53 M/mm3 (4.2-5.4); White Blood Count 4.5 K/mm3 (4.5-10.0)
[2022-08-30 05:32] LABS: Anion Gap 4 mmol/L (8-16); Blood Urea Nitrogen 10 mg/dL (7-17); Calcium 7.5 mg/dL (8.4-10.2); Carbon Dioxide 25 mmol/L (22-30); Chloride 107 mmol/L (98-107); Estimated CRCL calculation 123 ml/min; Estimated Glomerular Filt Rate > 60; Glucose 94 mg/dL (65-110); Potassium 3.6 mmol/L (3.4-5.0); Sodium 136 mmol/L (137-145)
[2022-08-30] MEDS: METHYLERGONOVINE MALEATE 0.2 MG TABLET PO ×2 (05:57→11:52)
--- NOTE | 2022-08-30 06:25 | PC.NURSE ---
0623- Dr. Shante Barrow called for update. updated on pt status. labs reviewed. no new orders received. will continue with plan of care and call if questions/concerns.
--- NOTE | 2022-08-30 07:11 | PM.OBPNVD ---
OB - PN: Subj Subjective Date/time seen: 08/30/22 07:11 Interval history: di well through night. bleeding lessened. us pending Patient comments: no complaints OB - PN: Obj Data Labs 08/30/22 05:02 08/30/22 05:02 Labs: Laboratory Results - last 24 hr 08/29/22 08/29/22 08/29/22 12:22 12:22 12:22 WBC 5.8 RBC 2.00 L Hgb 6.5 L* D Hct 20.0 L* MCV 100.0 MCH 32.5 MCHC 32.5 RDW 13.6 Plt Count 234 MPV 8.7 Immature Gran % (Auto) 0.5 Neut % (Auto) 74.7 H Lymph % (Auto) 17.8 L [place] % (Auto) 5.5 Eos % (Auto) 1.2 Baso % (Auto) 0.3 Lymph # (Auto) 1.04 [place] # (Auto) 0.3 Eos # (Auto) 0.1 Baso # (Auto) 0.0 Abs Immat Gran (auto) 0.03 Absolute Neuts (auto) 4.4 Absolute Nucleated RBC 0.0 Nucleated RBC % 0.0 Sodium Potassium Chloride Carbon Dioxide Anion Gap BUN Creatinine Estim Creat Clear Calc Estimated GFR Glucose Calcium Total Bilirubin AST ALT Alkaline Phosphatase NT-Pro-B Natriuret Pep 205 H Total Protein Albumin Influenza A (RT-PCR) Influenza B (RT-PCR) SARS-CoV-2 RNA (RT-PCR) Blood Type A Positive Antibody Screen Negative Crossmatch See Detail 08/29/22 08/29/22 08/30/22 12:22 15:14 05:02 WBC 4.5 RBC 2.53 L Hgb 8.0 L Hct 24.0 L MCV 94.9 D MCH 31.6 MCHC 33.3 RDW 15.0 H Plt Count 219 MPV 9.4 Immature Gran % (Auto) 0.7 H Neut % (Auto) 64.3 Lymph % (Auto) 23.4 [place] % (Auto) 8.5 Eos % (Auto) 2.7 Baso % (Auto) 0.4 Lymph # (Auto) 1.05 [place] # (Auto) 0.4 Eos # (Auto) 0.1 Baso # (Auto) 0.0 Abs Immat Gran (auto) 0.03 Absolute Neuts (auto) 2.9 Absolute Nucleated RBC 0.0 Nucleated RBC % 0.0 Sodium 138 Potassium 3.4 Chloride 108 H Carbon Dioxide 25 Anion Gap 5 L BUN 12 Creatinine 0.70 Estim Creat Clear Calc 107 Estimated GFR > 60 Glucose 130 H Calcium 7.7 L Total Bilirubin 0.3 AST 22 ALT 24 Alkaline Phosphatase 51 NT-Pro-B Natriuret Pep Total Protein 6.0 L Albumin 3.3 L Influenza A (RT-PCR) Negative Influenza B (RT-PCR) Negative SARS-CoV-2 RNA (RT-PCR) Negative Blood Type Antibody Screen Crossmatch 08/30/22 05:02 WBC RBC Hgb Hct MCV MCH MCHC RDW Plt Count MPV Immature Gran % (Auto) Neut % (Auto) Lymph % (Auto) [place] % (Auto) Eos % (Auto) Baso % (Auto) Lymph # (Auto) [place] # (Auto) Eos # (Auto) Baso # (Auto) Abs Immat Gran (auto) Absolute Neuts (auto) Absolute Nucleated RBC Nucleated RBC % Sodium 136 L Potassium 3.6 Chloride 107 Carbon Dioxide 25 Anion Gap 4 L BUN 10 Creatinine 0.60 L Estim Creat Clear Calc 123 Estimated GFR > 60 Glucose 94 Calcium 7.5 L Total Bilirubin AST ALT Alkaline Phosphatase NT-Pro-B Natriuret Pep Total Protein Albumin Influenza A (RT-PCR) Influenza B (RT-PCR) SARS-CoV-2 RNA (RT-PCR) Blood Type Antibody Screen Crossmatch Imaging Radiologist's impression: Impressions Pelvis Ultrasound 08/29/22 14:10 IMPRESSION: 1. Expansion of the endometrial cavity by heterogeneous appearing material, possible retained products of conception. OB - PN A/P Plan day: 1 Comments: await us Time Spent With Patient Time: Total time spent is greater than 50% in coordination of care (as documented) at patient's floor/unit and/or counseling patient: Time with patient: less than 15 minutes Exam Const: General: cooperative, healthy appearing and comfortable Nutritional Appearance: average body habitus Orientation/consciousness: oriented to person, oriented to place and oriented to time HENMT: Head: normal to inspection Resp: Effort & Inspection: normal respiratory effort Cardio: Rate: regular rate Rhythm: regular rhythm Heart sounds: S1 drake
--- NOTE | 2022-08-30 07:53 | PC.NURSE ---
0740--Pt. to u/s via wheelchair.
--- NOTE | 2022-08-30 08:23 | PC.NURSE ---
0823--Report to Dr. Friend re: u/s report, orders to allow pt. to order and eat breakfast and will continue to monitor at this time.
[2022-08-30 08:29] VITALS: BP 128/71; PULSE 87
[2022-08-30 08:59] VITALS: TEMP 37.1
[2022-08-30 11:52] VITALS: BP 131/73; PULSE 91
--- NOTE | 2022-08-30 11:54 | PC.NURSE ---
1154--Fundus firm, small trickle noted with fundal massage. Pt. reports small stream of bleeding when getting up to the BR.
--- NOTE | 2022-08-30 12:33 | PM.DS ---
DS: Admitting Diagnosis Discharge Date Admitting Diagnosis bleeding DS: Discharge Diagnosis Discharge Diagnosis (1) Anemia: Qualifiers: Anemia type: other cause Code(s): D64.9 - Anemia, unspecified Status: Acute (2) Abnormal uterine and vaginal bleeding, unspecified: Code(s): N93.9 - Abnormal uterine and vaginal bleeding, unspecified Status: Acute DS: Summary Hospital Course Reason for hospitalization: vaginal bleeding Hospital Course: is a 42-year-old multiparous patient who underwent repeat section and bilateral tubal ligation 15 days prior to admission. Who is going through several pads. She was seen in the ER and hemoglobin was noted to be 6. That was down from around 10 when she left . She had not had bleeding prior to that. Ultrasound showed some fluid in the uterus. She received 2units of blood and had a hemoglobin of 8 the following morning. Repeat ultrasound showed no change in the blood which was expected to be clots as there was no abnormal flow there. In light of her previous section and being only 2 weeks out we opted for watchful waiting and avoiding a suction D&C but she understands this could still be necessary. She is placed on Methergine and will continue that 4 times a day for the next 2 days and follow up in a week. Bleeding precautions were given Time Spent with Patient Time attestation: Total time spent providing and/or coordinating discharge services: Exam Const: General: cooperative, healthy appearing and comfortable Nutritional Appearance: average body habitus Orientation/consciousness: oriented to person, oriented to place and oriented to time HENMT: Head: normal to inspection Resp: Effort & Inspection: normal respiratory effort Cardio: Rate: regular rate Rhythm: regular rhythm Heart sounds: S1 normal heart sound present and S2 normal heart sound present GI: Inspection: normal to inspection DS: Data Data Completed and Pending Labs on day of discharge: Labs from last 24 hours 08/30/22 08/30/22 08/29/22 05:02 05:02 15:14 WBC 4.5 RBC 2.53 L Hgb 8.0 L Hct 24.0 L MCV 94.9 D MCH 31.6 MCHC 33.3 RDW 15.0 H Plt Count 219 MPV 9.4 Immature Gran % (Auto) 0.7 H Neut % (Auto) 64.3 Lymph % (Auto) 23.4 [place] % (Auto) 8.5 Eos % (Auto) 2.7 Baso % (Auto) 0.4 Lymph # (Auto) 1.05 [place] # (Auto) 0.4 Eos # (Auto) 0.1 Baso # (Auto) 0.0 Abs Immat Gran (auto) 0.03 Absolute Neuts (auto) 2.9 Absolute Nucleated RBC 0.0 Nucleated RBC % 0.0 Sodium 136 L Potassium 3.6 Chloride 107 Carbon Dioxide 25 Anion Gap 4 L BUN 10 Creatinine 0.60 L Estim Creat Clear Calc 123 Estimated GFR > 60 Glucose 94 Calcium 7.5 L Total Bilirubin AST ALT Alkaline Phosphatase NT-Pro-B Natriuret Pep Total Protein Albumin Influenza A (RT-PCR) Negative Influenza B (RT-PCR) Negative SARS-CoV-2 RNA (RT-PCR) Negative Blood Type Antibody Screen Crossmatch 08/29/22 08/29/22 08/29/22 12:22 12:22 12:22 WBC RBC Hgb Hct MCV MCH MCHC RDW Plt Count MPV Immature Gran % (Auto) Neut % (Auto) Lymph % (Auto) [place] % (Auto) Eos % (Auto) Baso % (Auto) Lymph # (Auto) [place] # (Auto) Eos # (Auto) Baso # (Auto) Abs Immat Gran (auto) Absolute Neuts (auto) Absolute Nucleated RBC Nucleated RBC % Sodium 138 Potassium 3.4 Chloride 108 H Carbon Dioxide 25 Anion Gap 5 L BUN 12 Creatinine 0.70 Estim Creat Clear Calc 107 Estimated GFR > 60 Glucose 130 H Calcium 7.7 L Total Bilirubin 0.3 AST 22 ALT 24 Alkaline Phosphatase 51 NT-Pro-B Natriuret Pep 205 H Total Protein 6.0 L Albumin 3.3 L Influenza A (RT-PCR) Influenza B (RT-PCR) SARS-CoV-2
== END 2022-08-30 13:52 | disposition home or self-care (01) | DRG 761 ==
LOC: ANHED 14:58 → ANHOBPP 15:23
PROVIDERS: Admitting Provider Obstetrics & Gynecology; Emergency Provider Family Medicine; PCP Obstetrics & Gynecology; Visit Provider Obstetrics & Gynecology
DX: N93.9 Abnormal uterine and vaginal bleeding, unspecified (principal); D64.9 Anemia, unspecified; Z20.822 Contact with and (suspected) exposure to COVID-19; Z87.442 Personal history of urinary calculi; Z87.891 Personal history of nicotine dependence
CPT/HCPCS: 36415; 36430; 76856; 80048; 80053; 83880; 85025; 86850; 86900; 86901; 86923; 87636; 93005; 99285; A9270; J7030; P9016

== ENCOUNTER 2022-11-22 18:17 | Emergency (ER) | payer OTHER, SELFPAY ==
--- NOTE | ~2022-11-22 | XR_ITS ---
EXAM: XR knee RT 3V DATE: 11/22/2022 18:50 HISTORY: SWELLING OF LOWER EXTREMITY, KNEE PAIN, NO INJ, . COMPARISON: None available. FINDINGS: Normal mineralization. No fracture or dislocation. No lytic or blastic lesion. Tricompartm ental right knee osteoarthritis, moderate in the medial compartment. Moderate volume right knee joint effusion. No erosion or periosteal change. Soft tissues within normal limits. IMPRESSION: No acute osseous finding in the right knee. Reviewed, dictated and finalized at location [facility].
[2022-11-22 18:22] VITALS: BP 126/86; PULSE 83; RESP 16; TEMP 36.9; O2SAT 100
--- NOTE | 2022-11-22 18:30 | ED.EXTPRO ---
HPI - Extremity Problem General Chief complaint: Extremity Problem,Nontraumatic Stated complaint: R LEG SWELLILNG Time Seen by Provider: 11/22/22 18:36 Source: patient and RN notes reviewed Mode of arrival: ambulatory Limitations: no limitations History of Present Illness HPI Narrative: [age] year old female presents with concern for right leg swelling. She reports she noticed swelling starting about 2-3 days ago in her right calf with tenderness when she walks. She reports today the swelling worsened spreading to the knee into the thigh. She reports some anterior knee pain with weight. She any trauma injury to her knee. She is 3 months postop this area dissection with complications. She denies shortness of breath, chest pain, headache. MD Complaint: extremity swelling Related Data Allergies Allergy/AdvReac Type Severity Reaction Status Date / Time No Known Allergies Allergy Unknown Verified 11/22/22 18:31 Review of Systems Review of Systems: CONSTITUTIONAL: Denies malaise, chills, sweats, or fever. CARDIOVASCULAR: Denies chest pain, palpitations, or edema. RESPIRATORY: Denies cough or dyspnea. SKIN: Denies rash or itching, bruising, redness MUSCULOSKELETAL: Reports right ankle, calf, knee, thigh swelling with right calf and knee pain NEUROLOGIC: Denies numbness, weakness All systems reviewed & are unremarkable except as noted in HPI and below PMFSH Past Medical History Medical History Renal stones Family History Family History Other Patient denies significant medical history Social History Social History Years smoked: 4 Smoking status: Former smoker Tobacco type: cigarettes Smoking end date: 09/03/18 Alcohol intake: never Substance use: never Substance use type: does not use Lack of Transportation: No Lack of Food: Never True Current Housing: I Have Housing Concerned About Future Housing: No Difficulty Paying Gas/Electric Bills: No Difficulty Paying for Meds: No Currently Unemployed: No Education: Bachelor's Degree Difficulty w/ Childcare or Family Care: No Living arrangements: with family Spiritual care concerns: No Comments At time of signature, agree with nursing past medical, surgical, social and family history. There is no relevant family history pertinent to the presenting complaint Exam Narrative: GENERAL: Well-appearing, well-nourished, and in no acute distress. HEAD: Normocephalic EYES: PERRLA, sclera clear ENT: Nares clear. Mucous membranes moist. NECK: Supple. CHEST: No respiratory distress. Clear to auscultation. No bony deformities, no asymmetry. Speaks in full sentences. HEART: Regular rate and rhythm. No murmur heard. Normal peripheral pulses. EXTREMITIES: Right ankle, calf, knee, thigh edematous, right posterior calf erythematous and warm, mild tenderness below the back of the knee. Right thigh measuring 25 in, left thigh measuring 24 in, right calf measuring 17.5 in, left calf measuring 16.5 in SKIN: Warm, dry, no visible rash. NEURO: Alert and oriented x3. PSYCH: Normal mood and affect Course Course Emergency Course: Patient is aware of, understands and agrees to treatment plan. Anticipatory guidance given. Patient agrees to proceed directly to the emergency department. Portions of this record may have been created with voice recognition software Level of Care: Express Care Visit Vital Signs Vital signs: Vital Signs Temperature 98.4 F 11/22/22 18:22 Pulse Rate 83 11/22/22 18:22 Respiratory Rate 16 11/22/22 18:22 Blood Pressure 126/86 11/22/22 18:22 Pulse Oximetry 100 11/22/22 18:22 Temperature 98.4 F 11/22/22 18:22 Pulse Rate 83 11/22/22 18:22 Respiratory Rate 16 11/22/22 18:22 Blood Pressure 126/86 11/22/22 18:22 Pulse Oxime
--- NOTE | 2022-11-22 18:45 | PC.NURSE ---
RT THIGH 25 , RT CALF 17 1/2 , LT THIGH 24 , LT CALF 16 1/2
== END 2022-11-22 19:00 | disposition home or self-care (01) ==
PROVIDERS: Emergency Provider Nurse Practitioner; PCP Obstetrics & Gynecology
DX: R22.41 Localized swelling, mass and lump, right lower limb (principal); Z87.891 Personal history of nicotine dependence
CPT/HCPCS: 73562; 99213; G0463

== ENCOUNTER 2022-11-22 19:28 | Emergency (ER) | payer OTHER, SELFPAY ==
--- NOTE | ~2022-11-22 | US_ITS ---
EXAMINATION: US venous doppler LE RT DATE: 11/22/2022 21:11 INDICATION: right leg swelling . TECHNIQUE: Grayscale images without and with compression and Doppler images of the right lower extrem ity veins were obtained. COMPARISON: None FINDINGS: The right common femoral vein, profunda (deep) femoral vein, femoral vein, popliteal vein, peroneal v ein, posterior tibial veins, gastrocnemius vein, and greater saphenous vein are patent. Subcutaneous edema at the calf and ankle. IMPRESSION: 1. Patent right lower extremity veins. No evidence of deep venous thrombosis. Reviewed, dictated and finalized at location [facility].
[2022-11-22 20:13] VITALS: BP 138/83; PULSE 80; RESP 20; TEMP 36.5; O2SAT 100
--- NOTE | 2022-11-22 22:11 | ED.LOWEXIN ---
HPI - Extremity Injury (Lower) General Chief Complaint: Extremity Injury, Lower Stated Complaint: right leg swelling - sent from to r/o DVT Time Seen by Provider: 11/22/22 22:18 History of Present Illness HPI Narrative: Patient is a 42-year-old female who presents the ER with right leg swelling. She has had right-sided knee pain for the last 10 days but noticed swelling over the last day. No chest pain or shortness of breath. No history of PE. Patient denies known injury to her knee. She had an outpatient x-ray performed today that did not show any fracture. She was thus referred here to rule out PE. Related Data Allergies Allergy/AdvReac Type Severity Reaction Status Date / Time No Known Allergies Allergy Unknown Verified 11/22/22 19:28 Review of Systems Musculoskeletal: Musculoskeletal: Reports arthralgias and Reports joint swelling Neurologic: Denies focal weakness and Denies numbness PMFSH Past Medical History Medical History Renal stones Family History Family History Other Patient denies significant medical history Social History Social History Years smoked: 4 Smoking status: Former smoker Tobacco type: cigarettes Smoking end date: 09/03/18 Alcohol intake: never Substance use: never Substance use type: does not use Lack of Transportation: No Lack of Food: Never True Current Housing: I Have Housing Concerned About Future Housing: No Difficulty Paying Gas/Electric Bills: No Difficulty Paying for Meds: No Currently Unemployed: No Education: Bachelor's Degree Difficulty w/ Childcare or Family Care: No Living arrangements: with family Spiritual care concerns: No Exam Narrative: GENERAL: Well-appearing, well-nourished, and in no acute distress. HEAD: Normocephalic, atraumatic. HEART: Regular rate and rhythm. Normal peripheral pulses. EXTREMITIES: Normal range of motion. 1+ edema. Right knee with full range of motion and with no ligamentous instability with varus/valgus stress and anterior drawer testing. No joint line tenderness. SKIN: Warm, dry, no rash. NEURO: N Alert and oriented x3. PSYCH: Normal mood and affect. Course Course Emergency Course: Patient informed of results. X-ray shows tricompartmental knee arthritis which is likely causing the majority of patient's issues. Discussed conservative treatment and she is verbalized understanding. Discharge home. Vital Signs Vital signs: Vital Signs Temperature 97.7 F 11/22/22 20:13 Pulse Rate 80 11/22/22 20:13 Respiratory Rate 20 11/22/22 20:13 Blood Pressure 138/83 11/22/22 20:13 Pulse Oximetry 100 11/22/22 20:13 Oxygen Delivery Room Air 11/22/22 20:13 Temperature 97.7 F 11/22/22 20:13 Pulse Rate 80 11/22/22 20:13 Respiratory Rate 20 11/22/22 20:13 Blood Pressure 138/83 11/22/22 20:13 Pulse Oximetry 100 11/22/22 20:13 Oxygen Delivery Room Air 11/22/22 20:13 MDM - Extremity Injury (Lower) Imaging Data Radiologist's impression: ITS Impressions Venous Doppler Study 11/22/22 21:20 IMPRESSION: 1. Patent right lower extremity veins. No evidence of deep venous thrombosis. Discharge Plan Discharge Clinical Impression: Edema Patient Disposition: Home, Self-Care Condition: Stable Instructions: Leg Edema (ED) Additional Instructions: Your ultrasound does not show any evidence of DVT. You may wear compression stockings to decrease edema in your legs. You may also elevate your legs. Return to the ER if you have chest pain or shortness of breath, you cannot keep down food or water, you have additional concerns. Prescriptions: No Action ibuprofen 600 mg Tablet 600 mg PO Q6H PRN (Reason: Cramping) Qty: 60 0RF Follow-up/Referrals: Unruly Lee,
== END 2022-11-22 22:31 | disposition home or self-care (01) ==
LOC: ANHED 22:24
PROVIDERS: Emergency Provider Emergency Medicine
DX: R60.0 Localized edema (principal); Z87.891 Personal history of nicotine dependence; Z87.442 Personal history of urinary calculi
CPT/HCPCS: 73562; 93971; 99284

== ENCOUNTER → 2023-01-09 16:58 | Outpatient (CLI) | payer OTHER, SELFPAY ==
--- NOTE | ~2023-01-09 | MR_ITS ---
MRI of the right knee Clinical history: Pain Technique: Coronal proton density and proton density-weighted images, sagittal proton-density and T2 fat-sat images, and axial proton-density fat-saturated images were acquired. Findings: Anterior and posterior cruciate ligaments are intact. Medial collateral ligament and the la teral collateral ligament complex are intact. Popliteus tendon is intact. Medial and lateral menisci are intact, without evidence of tear. There is mild to moderate diffuse chondral thinning in the medial compartment, especially the medial femoral condyle. Articular cartilage in the lateral and patellofemoral compartments is relatively wel l-preserved. There is minimal amorphous marrow edema at the anterior aspect of the medial tibial plat eau region. Extensor mechanism is intact. Moderate joint effusion is present. [id number] Godfrey's cyst pres ent. Impression: Mild marrow edema at the anterior aspect of the medial tibial plateau, which could reflect bone contu alexa from direct impaction injury. No ligamentous injury or meniscal tear. Moderate joint effusion and small to moderate Godfrey's cyst. [id number] diffuse chondromalacia of the medial compartment. Reviewed, dictated and finalized at [facility]. Impression: Mild marrow edema at the anterior aspect of the medial tibial plateau, which co uld reflect bone contusion from direct impaction injury. No ligamentous injury or meniscal tear. Moderate joint effusion and small to moderate Godfrey's cyst. [id number] diffuse chondromalacia of the medial compartment.
== END ==
PROVIDERS: PCP Nurse Practitioner Family; Visit Provider Nurse Practitioner Family
DX: R60.9 Edema, unspecified (principal); M25.461 Effusion, right knee; M71.21 Synovial cyst of popliteal space [Baker], right knee; M94.261 Chondromalacia, right knee
CPT/HCPCS: 73721